=== PATIENT | female | born 1955 | race Caucasian/White ===

== ENCOUNTER 2021-10-17 11:02 | Emergency (ER) | payer OTHER ==
[~2021-10-17] VITALS: Ht 165.1 cm; Wt 68.0 kg
[2021-10-17] MEDS ORDERED: GABAPENTIN600 MG PO (11:14)
[2021-10-17] MEDS ORDERED: METOPROLOL SUCC25 MG PO (11:14)
[2021-10-17] MEDS ORDERED: ATORVASTATIN CA40 MG PO (11:14)
[2021-10-17] MEDS ORDERED: METFORMIN HCL500 M1 PO (11:14)
[2021-10-17] MEDS ORDERED: CANDESARTAN CIL16 MG PO (11:15)
[2021-10-17] MEDS ORDERED: BUPROPION XL300 MG PO (11:15)
== END 2021-10-17 19:23 | disposition home or self-care (01) ==
LOC: ER 11:02
DX: K57.92 Diverticulitis of intestine, part unspecified, without perforation or abscess without bleeding (principal); R10.84 Generalized abdominal pain; N20.0 Calculus of kidney; Z20.822 Contact with and (suspected) exposure to COVID-19; Z91.013 Allergy to seafood

== ENCOUNTER 2021-10-18 12:10 | Inpatient (IN) | payer OTHER ==
[~2021-10-18] VITALS: Ht 152.4 cm; Wt 68.0 kg
[~2021-10-18 12:10] MED LIST: ATORVASTATIN CA40 MG PO; BUPROPION XL300 MG PO; CANDESARTAN CIL16 MG PO; GABAPENTIN600 MG PO; METFORMIN HCL500 M1 PO; METOPROLOL SUCC25 MG PO
--- NOTE | 2021-10-18 12:26 | NUR ---
SE RECIBE PACIENTE ALERTA Y ORIENTADA X3 QUIEN REFIERE PRESENTA DOLOR ABDOMINAL DESDE HACE 4 PAEZ. PTE INDICA ESTUVO EMIR EN POOL DE EMERGENCIAS Y FUE DIAGNOSTICADA CON DIVERTICULOS.ESTA REFIERE TENER DOLOR TODAVIA. SE MONITOREAN LOS SV Y SE UBICA EN POOL.
--- NOTE | 2021-10-18 13:27 | NUR ---
SE RECEBE PTE FEMENINA DE 66 YRS ALERTA CONCIENTE Y TRANQUILA EN COMPANIA DE FAMILAIR. PTE ES EVALUADA POR EL FERMIN LOTT NELLIE QUIE ORDENA TRATAMIENTO LA CUAL SE EJCTA.
[2021-10-19] MEDS ORDERED: SPIRONOLACTONE50 MG (08:54)
[2021-10-19] MEDS ORDERED: INTESTINEX680 M1 (08:54)
[2021-10-19] MEDS ORDERED: FAMOTIDINE40 MG (08:54)
== END 2021-10-21 11:52 | disposition home or self-care (01) | DRG 392 ==
LOC: ER 12:10 → MEDI 17:07
PROVIDERS: ADMIT Internal Medicine; ATTEND Internal Medicine
DX: K57.32 Diverticulitis of large intestine without perforation or abscess without bleeding (principal); R10.32 Left lower quadrant pain; I10 Essential (primary) hypertension; Z20.822 Contact with and (suspected) exposure to COVID-19; E11.9 Type 2 diabetes mellitus without complications

== ENCOUNTER → 2022-11-01 | Emergency (ER) | payer OTHER ==
[~2022-11-01] VITALS: Ht 165.1 cm; Wt 68.0 kg
[~2022-11-01] MED LIST changes: +FAMOTIDINE40 MG; +INTESTINEX680 M1; +SPIRONOLACTONE50 MG
== END | disposition home or self-care (01) ==
LOC: ER 11:12
DX: K57.32 Diverticulitis of large intestine without perforation or abscess without bleeding (principal); R10.9 Unspecified abdominal pain; Z88.1 Allergy status to other antibiotic agents; Z91.013 Allergy to seafood

== ENCOUNTER 2022-11-03 17:43 | Emergency (ER) | payer OTHER ==
[~2022-11-03] VITALS: Ht 165.1 cm; Wt 68.0 kg
[2022-11-03] MEDS ORDERED: AMOX1TAB5 (18:11)
[2022-11-03] MEDS ORDERED: FLAGYL375 MG PO (18:11)
[2022-11-03] MEDS ORDERED: INTESTINEX680 M1 PO (21:18)
[2022-11-03] MEDS ORDERED: NAPROXEN500 MG PO (21:18)
== END 2022-11-03 21:20 | disposition home or self-care (01) ==
LOC: ER 17:43
DX: K57.32 Diverticulitis of large intestine without perforation or abscess without bleeding (principal); E11.9 Type 2 diabetes mellitus without complications; Z79.84 Long term (current) use of oral hypoglycemic drugs; E78.49 Other hyperlipidemia; I10 Essential (primary) hypertension; Z88.2 Allergy status to sulfonamides; Z91.013 Allergy to seafood

== ENCOUNTER 2024-07-27 12:00 | Emergency (ER) | payer OTHER ==
[~2024-07-27] VITALS: Ht 165.1 cm; Wt 64.0 kg
[~2024-07-27 12:00] MED LIST changes: +AMOX1TAB5; +FLAGYL375 MG PO; +INTESTINEX680 M1 PO; +NAPROXEN500 MG PO
[2024-07-27] MEDS ORDERED: METRONIDAZOLE/SODIUM CHLORIDE 500 MG/100 ML PIGGYBACK IV STA (13:33)
[2024-07-27] MEDS ORDERED: PIPERACILLIN/TAZOBACTAM SODIUM 2.25 GM VIAL IV STA (13:34)
[2024-07-27] MEDS ORDERED: METRONIDAZOLE/SODIUM CHLORIDE 500 MG/100 ML PIGGYBACK IV ONE (13:37)
[2024-07-27] MEDS ORDERED: PIPERACILLIN/TAZOBACTAM SODIUM 3.375 GM VIAL IV ONE (13:37)
[2024-07-27 14:07] LABS: HEMATOCRIT 40.8 % (36.0-45.00); HEMOGLOBIN 13.4 g/dL (12.0-15.00); MEAN CELL VOLUME 87.8 fL (80.00-100.00); MEAN CORPUSCULAR HEMOGLOBIN 28.9 pg (27.00-32.0); MEAN CORPUSCULAR HGB CONC 32.9 g/dl (32.0-36.0); PLATELET COUNT 329 K/uL (150-450); RED BLOOD COUNT 4.65 M/uL (4.00-6.00); RED CELL DISTRIBUTION WIDTH 14.3 % (11.5-14.5)
[2024-07-27] MEDS ORDERED: HYOSCYAMINE SULFATE 0.125 MG TAB.SUBL ONE (14:07)
[2024-07-27 14:12] LABS: PH,URINE 5.5 (5.0-8.0); URINE APPEARANCE Cloudy; URINE BILIRRUBIN Negative (NEGATIVE); URINE BLOOD Negative; URINE COLOR Yellow; URINE GLUCOSE Negative (NEGATIVE); URINE KETONE Negative (NEGATIVE); URINE LEUKOCYTE Negative; URINE NITRATE Negative; URINE PROTEIN 30 (NEGATIVE); URINE UROBILINOGEN 0.2 E.U./dl
[2024-07-27] MEDS ORDERED: HYOSCYAMINE SULFATE 0.125 MG TAB.SUBL SL ONE (14:15)
[2024-07-27 14:16] LABS: URINE BACTERIA 2190.8 uL (0.0-1933); URINE CAST 3.97 uL (0.0-1.40); URINE EPITHELIAL CELLS 113.2 uL (0.0-38.8); URINE RBC 8.6 uL (0.0-20.8); URINE WBC 13.6 uL (0.0-23.2)
[2024-07-27 14:42] LABS: CALCIUM 9.6 mg/dL (8.5-10.1); CREATININE SERUM 1.41 mg/dL (0.55-1.02); GFR 36.87; POTASSIUM 3.8 mEq/L (3.5-5.1)
[2024-07-27 14:43] LABS: URINE MUCUS SCANT
== END 2024-07-27 17:48 | disposition home or self-care (01) ==
LOC: ER 12:01
PROVIDERS: General Practice
DX: R10.9 Unspecified abdominal pain (principal); Z91.013 Allergy to seafood; Z88.1 Allergy status to other antibiotic agents; K57.32 Diverticulitis of large intestine without perforation or abscess without bleeding